=== PATIENT | female | born 1980 | race Caucasian/White ===

== ENCOUNTER 2016-12-16 06:10 | Inpatient (IN) | payer OTHER ==
[~2016-12-16] VITALS: Ht 160 cm; Wt 57.6 kg
[~2016-12-16 06:10] MED LIST: 0.9% SODIUM CHLORIDE 10 ML VIAL IVP ONE; EPHEDrine SULFATE 50 MG/ML VIAL IM ONE; LIDOCAINE HCL/PF 2% 5 ML VIAL IM ONE; OXYTOCIN 10 UNITS/ML VIAL IM ONE; PNV#1COM7 PO
[2016-12-16] MEDS ORDERED: RINGERS SOLUTION,LACTATED 1,000 ML IV ONE (06:53)
[2016-12-16] MEDS ORDERED: METOCLOPRAMIDE HCL 5 MG/ML 2 ML VIAL IVP ONE (07:00)
[2016-12-16] MEDS ORDERED: CITRIC ACID/SODIUM CITRATE 30 ML SOLUTION UDCUP PO ONE (07:00)
[2016-12-16] MEDS ORDERED: CeFAZolin 2 GM/DEXTROSE 50 ML IV ONE (07:04)
[2016-12-16] MEDS ORDERED: MORPHINE SULFATE/PF 1 MG/ML 10 ML AMP ONE (07:05)
[2016-12-16] MEDS ORDERED: FentaNYL CITRATE-PF 100 MCG/2 ML VIAL ONE (07:05)
[2016-12-16 07:44] LABS: BASOPHILS # (AUTO) 0.01 K/uL (0.00-0.20); BASOPHILS % (AUTO) 0.1 % (0.0-2.0); EOSINOPHILS # (AUTO) 0.11 K/uL (0.00-0.70); EOSINOPHILS % (AUTO) 1.68 % (1.0-6.0); HEMATOCRIT 32.2 % (36-46); HEMOGLOBIN 10.8 g/dL (12.0-16.0); LYMPHOCYTES # (AUTO) 1.6 K/uL (1.0-4.8); LYMPHOCYTES % (AUTO) 23.9 % (22.0-44.0); MEAN CORPUSCULAR HEMOGLOBIN 31.1 pg (26.0-34.0); MEAN CORPUSCULAR HGB CONC 33.4 G/dL (31.0-37.0); MEAN CORPUSCULAR VOLUME 93 fL (80-100); MONOCYTES # (AUTO) 0.6 K/uL (0.1-1.0); MONOCYTES % (AUTO) 8.6 % (2.0-9.0); NEUTROPHILS # (AUTO) 4.3 K/uL (1.8-7.7); NEUTROPHILS % (AUTO) 65.8 % (40.0-70.0); RED BLOOD CELL COUNT(AUTO) 3.45 MIL/uL (4.00-5.20); WHITE BLOOD COUNT (AUTO) 6.5 K/uL (4.5-11.0)
[2016-12-16 07:48] VITALS: BP 126/84
[2016-12-16] MEDS ORDERED: TRIAMCINOLONE ACETONIDE 40 MG/ML VIAL IM ONE (08:15)
[2016-12-16] MEDS ORDERED: NALBUPHINE HCL 10 MG/ML VIAL IVP PRN (09:00)
[2016-12-16] MEDS ORDERED: DiphenhydrAMINE HCL 50 MG/ML VIAL IVP PRN ×2 (09:00→09:15)
[2016-12-16] MEDS ORDERED: MEPERIDINE-PF 25 MG/ML SYRINGE IVP PRN (09:00)
[2016-12-16] MEDS ORDERED: DEXAMETHASONE SOD PHOS 4 MG/ML VIAL IVP PRN (09:00)
[2016-12-16] MEDS ORDERED: ONDANSETRON HCL 4 MG/2 ML VIAL IVP PRN ×2 (09:00→09:15)
[2016-12-16] MEDS ORDERED: PROMETHAZINE HCL 12.5 MG in SODIUM CHLORIDE 0.9% 50 ML IV PRN (09:00)
[2016-12-16] MEDS ORDERED: FentaNYL CITRATE-PF 100 MCG/2 ML VIAL IVP PRN ×3 (09:15)
[2016-12-16] MEDS ORDERED: NALOXONE HCL 0.4 MG/ML VIAL IVP PRN (09:15)
[2016-12-16] MEDS ORDERED: METHYLERGONOVINE MALEATE 0.2 MG/ML VIAL ONE (09:26)
[2016-12-16] MEDS ORDERED: ACETAMINOPHEN/CODEINE 300-30 MG TABLET PO PRN ×2 (09:30)
[2016-12-16] MEDS: NALBUPHINE HCL 10 MG/ML VIAL IVP SCH ×3 (11:39→23:56)
[2016-12-16] MEDS: DEXTROSE 5%-0.45% SODIUM CHL 1,000 ML IV SCH ×3 (11:40→22:03)
[2016-12-17] MEDS: DEXTROSE 5%-0.45% SODIUM CHL 1,000 ML IV SCH (01:59)
[2016-12-17] MEDS: NALBUPHINE HCL 10 MG/ML VIAL IVP SCH (06:13)
[2016-12-17] MEDS: IBUPROFEN 800 MG TABLET PO SCH ×3 (08:19→21:25)
[2016-12-17] MEDS: LANOLIN 7 GM OINTMENT TP PRN (09:30)
[2016-12-17] MEDS: MAGNESIUM HYDROXIDE SUSPENSION 30 ML UDCUP PO SCH ×2 (09:30→21:00)
[2016-12-18] MEDS: IBUPROFEN 800 MG TABLET PO SCH ×4 (03:20→21:03)
[2016-12-18] MEDS: GuaiFENesin [SUGAR-FREE] 200 MG/10 ML SOLUTION UDCUP PO PRN ×2 (15:15→20:14)
[2016-12-19] MEDS: IBUPROFEN 800 MG TABLET PO SCH (02:52)
[2016-12-19] MEDS: LANOLIN 7 GM OINTMENT TP PRN (08:58)
[2016-12-19] MEDS: GuaiFENesin [SUGAR-FREE] 200 MG/10 ML SOLUTION UDCUP PO PRN (10:12)
[2016-12-19] MEDS ORDERED: IBUP-2070 PO (10:28)
== END 2016-12-19 11:15 | disposition home or self-care (01) | DRG 766 ==
LOC: 4S 06:10 → NSY 18:45 → PREOBSVTOIN 12-23 06:36
PROVIDERS: ADMIT Obstetrics & Gynecology; ATTEND Obstetrics & Gynecology
PROC: 10D00Z1 Extraction of Products of Conception, Low, Open Approach (ICD-10-PCS; principal; 2016-12-16)
DX: O34.211 Maternal care for low transverse scar from previous cesarean delivery (principal); N85.8 Other specified noninflammatory disorders of uterus; O69.81X0 Labor and delivery complicated by cord around neck, without compression, not applicable or unspecified; O09.523 Supervision of elderly multigravida, third trimester; Z3A.40 40 weeks gestation of pregnancy; Z37.0 Single live birth
CPT/HCPCS: 86850; 86900; 86901; 87081; J0690; J2210; J2300; J2590; J2765; J3010; J3301; J3490